=== PATIENT | female | born 1995 | race Caucasian/White ===

== ENCOUNTER 2019-07-27 14:06 | Emergency (ER) | payer MEDICAID ==
[~2019-07-27] VITALS: Ht 160 cm; Wt 61.7 kg
[2019-07-27 14:36] VITALS: Ht 160 cm; Wt 61.7 kg
[2019-07-27 17:50] VITALS: BP 125/67
== END 2019-07-27 17:50 | disposition home or self-care (01) ==
LOC: ED 14:06
DX: T24.201A Burn of second degree of unspecified site of right lower limb, except ankle and foot, initial encounter (principal); J45.909 Unspecified asthma, uncomplicated; X10.1XXA Contact with hot food, initial encounter; Y93.89 Activity, other specified; Y92.89 Other specified places as the place of occurrence of the external cause; Y99.8 Other external cause status
CPT/HCPCS: 90715